=== PATIENT | female | born 1985 | race Two or more races ===

== ENCOUNTER 2019-11-16 10:41 | Day surgery (SDC) | payer OTHER ==
[~2019-11-16] VITALS: Ht 152.4 cm; Wt 70.6 kg
[2019-11-16] MEDS ORDERED: KETOROLAC 30 MG/ML VIAL (J1885) IV ONE (11:00)
[2019-11-16] MEDS ORDERED: ONDANSETRON 4MG/2ML VIAL (J2405) IV ONE (11:00)
[2019-11-16 11:24] LABS: BASO % 0.3 % (0.0-1.0); EOS # 0.2 10^3/uL (0.0-0.5); EOS % 1.3 % (0.0-3.0); HEMATOCRIT 42.1 % (36.0-47.0); HEMOGLOBIN 13.6 g/dl (12.0-15.5); LYMPH # 2.4 10^3/uL (1.5-5.0); LYMPH % 19.1 % (24.0-44.0); MEAN CORPUSCULAR HEMOGLOBIN 26.8 pg (27.0-33.0); MEAN CORPUSCULAR HGB CONC 32.3 g/dl (32.0-36.5); MEAN CORPUSCULAR VOLUME 82.9 fl (80.0-96.0); MONO # 1.1 10^3/uL (0.0-0.8); NEUTROPHILS # 8.8 10^3/uL (1.5-8.5); NEUTROPHILS % 69.7 % (36.0-66.0); PLATELET COUNT, AUTOMATED 315 10^3/uL (150-450); RED BLOOD COUNT 5.08 10^6/uL (4.00-5.40); WHITE BLOOD COUNT 12.6 10^3/uL (4.0-10.0)
[2019-11-16] MEDS ORDERED: ISOVUE-370 76% 100ML VIAL (Q9967) As Ordered ONE (11:46)
[2019-11-16 11:54] LABS: ALBUMIN 3.7 GM/DL (3.2-5.2); BILIRUBIN,DIRECT 0.2 MG/DL (0.0-0.2); BILIRUBIN,TOTAL 0.7 MG/DL (0.2-1.0); TOTAL PROTEIN 7.5 GM/DL (6.4-8.2)
--- NOTE | 2019-11-16 12:26 | REP ---
CT ABDOMEN AND PELVIS WITH IV CONTRAST: HISTORY: Right lower quadrant pain. CT CONTRAST DOSE: 100 mL of intravenous Isovue 370. CT FINDINGS: Preliminary digital credit front office developer radiograph shows a normal bowel gas pattern. The lung bases are clear on axial CT images. No focal hepatic or splenic lesion is observed. There is one tiny hepatic cyst in the right lobe measuring less than 5 mm. No abnormality is noted in the pancreas or in the gallbladder. Normal adrenal glands are seen bilaterally. The kidneys enhance symmetrically and are morphologically intact. There are a few normal-sized mesenteric lymph nodes in the right lower small bowel mesentery. Terminal ileum is unremarkable. The appendix is seen, mildly enlarged, 8 mm in diameter but without evidence of mural thickening or periappendiceal stranding. No fluid is appreciated. Small and large intestinal bowel loops are otherwise unremarkable. There is a tiny subserosal uterine fibroid at the uterine fundus. This measures 9 mm. There is a small ovarian follicle cyst. Urinary bladder is unremarkable. No abdominal wall defect is seen. No bony destructive lesion is observed. IMPRESSION: Borderline diameter, 8 mm, appendix without evidence of mural thickening or periappendiceal stranding. Otherwise normal CT study abdomen and pelvis. Electronically Signed by Steven Acosta MD 11/16/2019 01:33 P
[2019-11-16] MEDS ORDERED: AMPICILLIN SOD/SULBACTAM SOD 3 GM in D5W MINI-BAG PLUS 100 ML IV ONE (13:45)
--- NOTE | 2019-11-16 14:09 | HPEPDOC ---
General Surgery H&P Date of Admission Nov 16, 2019 Attending Physician: ALEXANDREA ROMO MD History and Physical CHIEF COMPLAINT: abdominal pain HISTORY OF PRESENT ILLNESS: Patient presented herself to the emergency room with one-day history of right- sided abdominal pain. She reports pain started roughly about 7 PM last night was worse last night and this morning but has been persistent and constant. She had nausea and one episode of vomiting last night. Denies fevers or chills. She denies any sick contacts. She felt previously well in the morning. She is an active duty soldier. ALLERGIES: Please see below. HOME MEDICATIONS: Please see below. PAST MEDICAL HISTORY: Denies any chronic medical problems PAST SURGICAL HISTORY: 1. Tubal ligation. PERSONAL/SOCIAL HISTORY: Denies smoking, alcohol use, or recreational drug use. REVIEW OF SYSTEMS: GENERAL: Denies chills, fatigue, fever, weight gain and weight loss. HEENT: Denies hearing or vision problems. NECK: Denies any neck pain. CARDIOVASCULAR: Denies chest pain and palpitations. MUSCULOSKELETAL: Denies arthralgias, back pain and thrombophlebitis. SKIN: Denies rash. NEUROLOGIC: Denies headaches. PSYCHIATRIC: Denies anxiety and depression. HEMATOLOGY/ONCOLOGY: Denies any bleeding or clotting disorder. HEART: Denies any chest pains, palpitations, paroxysmal dyspnea, orthopnea. PULMONARY: Denies chronic cough, dyspnea and wheezing. GASTROINTESTINAL: See HPI. GENITOURINARY: Denies dysuria, frequency, hematuria and nocturia. ENDOCRINE: Denies polydipsia, polyphagia, polyuria, heat or cold intolerance. INFECTIOUS: Denies any recent upper respiratory tract infection, UTI, need for use of antibiotics. NUTRITION: Reports fair appetite. PHYSICAL EXAMINATION: VITAL SIGNS: Please see below. GENERAL APPEARANCE: Patient seen in the emergency room, relatively comfortable though noticeable discomfort when she moves. Awake, alert, oriented. HEENT: Normocephalic, atraumatic. [place] palpebral conjunctivae. Anicteric sclerae. Lips moist. CHEST: No chest wall abnormalities. Normal respiratory motion/effort. NECK: Supple. No thyromegaly. No lymphadenopathies. LUNGS: Lung sounds are clear to auscultation bilaterally. No wheezing appreciat ed. HEART: No chest wall abnormalities. Heart rate and rhythm are regular with no murmurs. ABDOMEN: Abdomen slightly rounded, soft, minimally distended. She has a periumbilical scar around the umbilicus from her tubal ligation. Nontender in the left side. She is tender over the right lower quadrant area with mild guarding on palpation slightly radiation to the suprapubic area. Umbilical area. SKIN: Warm, moist. EXTREMITIES: Extremities have no deformities. No edema identified. NEUROLOGICAL: Awake, alert, oriented . ANCILLARIES: . LABORATORY DATA: Please see below. MICROBIOLOGY: Please see below. IMAGING: CT abdomen and pelvis. Borderline diameter, 8 mm, appendix without evidence of mural thickening or periappendiceal stranding. Otherwise normal CT study abdomen and pelvis. IMPRESSION AND PLAN: Most likely early acute appendicitis Patient's history as well as physical examination is consistent with localized peritoneal irritation most likely from enlarged probably early acute appendicitis. No other pathology visible on CT to explain her symptoms. She does have some mildly enlarged right ovarian cyst but her pain pattern [place] near that area. Thus I suggest to perform diagnostic laparoscopy and most likely the need for appendectomy.I discussed with the patient the details of the proposed procedure, the benefits of performing the procedure, the most common risks on d oing the procedure. This may include Risks of general anesthesia, risks from laparoscopy including bowel and injury, risk of subsequent infection and abscess formation from the appendicitis. I have given her a chance to ask questions, voice out concerns. Patient has agreed to proceed. She will be given a dose of Unasyn 3 g IV preoperatively and depending on the degree of her state of inflammation or infection involving the appendix may or may not need for antibiotics. Vital Signs Vital Signs Date Time Temp Pulse Resp B/P (MAP) Pulse Ox O2 Delivery O2 Flow Rate FiO2 11/16/19 11:27 11/16/19 10:41 97.9 71 16 100 Room Air Laboratory Data Labs 24H Laboratory Tests 2 11/16/19 11:13: Immature Granulocyte % (Auto) 0.6, Neutrophils (%) (Auto) 69.7H, Lymphocytes (%) (Auto) 19.1L, Monocytes (%) (Auto) 9.0H, Eosinophils (%) (Auto) 1.3, Basophils (%) (Auto) 0.3, Neutrophils # (Auto) 8.8H, Lymphocytes # (Auto) 2.4, Monocytes # (Auto) 1.1H, Eosinophils # (Auto) 0.2, Basophils # (Auto) 0.0, Nucleated Red Blood Cells % (auto) 0.0, Urine Color YELLOW, Urine Appearance CLEAR, Urine pH 7.0, Urine Specific [place] 1.026, Urine Protein NEGATIVE, Urine Glucose (UA) NEGATIVE, Urine Ketones NEGATIVE, Urine Blood NEGATIVE, Urine Nitrite NEGATIVE, Urine Bilirubin NEGATIVE, Urine Urobilinogen 0.2, Urine Leukocyte Esterase NEGATIVE, Urine WBC (Auto) 2, Urine RBC (Auto) 2, Urine Hyaline Casts (Auto) 0, Urine Bacteria (Auto) 1+H, Urine Squamous Epithelial Cells 5, Urine Sperm (Auto) , Total Bilirubin 0.7, Direct Bilirubin 0.2, Aspartate Amino Transf (AST/SGOT) 14, Alanine Aminotransferase (ALT/SGPT) 22, Alkaline Phosphatase 70, Total Protein 7.5, Albumin 3.7, Albumin/Globulin Ratio 0.97L, Lipase 138 11/16/19 11:20: POC Glucose (Misc Panel) 84, POC Sodium (Misc Panel) 137, POC Potassium (Misc Panel) 3.6, POC Chloride (Misc Panel) 98, POC Total CO2 (Misc Panel) 28.0H, POC Blood Urea Nitrogen (Misc Panel 15, POC Ionized Calcium (Misc Panel) 4.8, POC Creatinine (Misc Panel) 0.9, POC Hematocrit (Misc Panel) 42.0 11/16/19 11:22: POC Beta HCG, Quantitative < 5.0 CBC/BMP Laboratory Tests 11/16/19 11:13 Home Medications No Active Prescriptions or Reported Meds Allergies Coded Allergies: No Known Allergies (Unverified , 11/16/19) A-FIB/CHADSVASC A-FIB History Current/History of A-Fib/PAF?: No Current PO Anticoag Therapy: No ALEXANDREA ROMO MD Nov 16, 2019 14:09
[2019-11-16] MEDS ORDERED: ACET-683 PO (14:11)
[2019-11-16] MEDS ORDERED: BUPIVACAINE HCL 0.25% 30ML VIAL As Ordered ONE (14:44)
[2019-11-16] MEDS ORDERED: LIDOCAINE 1% SDV INJ 30 ML VIAL As Ordered ONE (14:44)
[2019-11-16 15:55] VITALS: BP 106/61
[2019-11-16] MEDS ORDERED: NORC1TAB7 PO (17:38)
[2019-11-16] MEDS ORDERED: ONDANSETRON 4MG/2ML VIAL (J2405) As Ordered ONE (17:52)
[2019-11-16] MEDS ORDERED: PHENYLephrine HCL 500 MCG/5 ML (100MCG/ML) SYRINGE (J2370) As Ordered ONE (17:52)
[2019-11-16] MEDS ORDERED: propofoL 200 MG/20 ML VIAL As Ordered ONE (17:52)
[2019-11-16] MEDS ORDERED: MIDAZOLAM INJ 2 MG/2 ML VIAL (J2250) As Ordered ONE (17:52)
[2019-11-16] MEDS ORDERED: SUGAMMADEX SODIUM 500 MG/5 ML VIAL (BRIDION) As Ordered ONE (17:52)
[2019-11-16] MEDS ORDERED: ROCURONIUM BROMIDE 50 MG/5 ML VIAL As Ordered ONE (17:52)
[2019-11-16] MEDS ORDERED: LIDOCAINE 2% INJ 100 MG/5 ML SDV (FOR ANES.) As Ordered ONE (17:52)
[2019-11-16] MEDS ORDERED: dexameTHASONE 4 MG/ML 1ML VIAL (J1100) As Ordered ONE (17:52)
[2019-11-16] MEDS ORDERED: fentaNYL 250 MCG/5 ML INJECTION (J3010) As Ordered ONE (17:52)
[2019-11-16] MEDS ORDERED: ONDANSETRON 4MG/2ML VIAL (J2405) IV PRN ×2 (18:45→19:00)
[2019-11-16] MEDS ORDERED: fentaNYL 100 MCG/2 ML INJECTION (J3010) IV PRN (18:45)
[2019-11-16] MEDS ORDERED: LR 1,000 ML IV SCH (18:45)
[2019-11-16] MEDS ORDERED: PERCOCET 5MG/325MG TAB PO PRN (18:45)
[2019-11-16] MEDS ORDERED: PERCOCET 5MG/325MG TAB As Ordered ONE (18:59)
[2019-11-16] MEDS ORDERED: KETOROLAC 30 MG/ML VIAL (J1885) IV PRN (19:00)
[2019-11-16] MEDS ORDERED: NORCO, ANEXSIA 5/325MG TABLET (HYDROcodone/ACETAMINOPHEN) PO PRN (19:00)
[2019-11-16 19:30] VITALS: BP 111/72
[2019-11-16 20:00] VITALS: BP 123/93
--- NOTE | 2019-11-17 08:40 | ROOPDOC ---
[facility] Report Of Operation Report of Operation DATE OF PROCEDURE: 11/16/19 PREPROCEDURE DIAGNOSES: Acute appendicitis. POSTPROCEDURE DIAGNOSES: Early acute appendicitis. PROCEDURE: Laparoscopic appendectomy. SURGEON: Samir Lang MD EXPORT ADMINISTRATOR: ANESTHESIA: General Anesthesia. ESTIMATED BLOOD LOSS: Approximately 10 mL. COMPLICATIONS: none. REMARKS: mildly dilated distal half of the appendix, mild wall thickening and vascular congestion, no perforation. SPECIMEN: Appendix. DESCRIPTION OF PROCEDURE: Patient has been given a dose of Unasyn 3 gm IV perioperatively. Patient was brought to the operating room, placed supine on the table. Sequential compression device placed for DVT prophylaxis. General endotracheal anesthesia started. The abdomen prepped and draped in usual sterile fashion. After a surgical timeout, we began our surgery Entry into the abdomen done through an incision above the umbilicus. Veress needle inserted on a controlled fashion. Intra-abdominal placement confirmed with saline drop technique. CO2 insufflation started to a pressure of 15 mmHg. Using the same incision an 8 mm port was placed under direct vision of laparoscope. Insertion site was inspected for injury and none was found. He was placed on a Trendelenburg position the right side tilted to about 30 to allow for better visualization of the appendix. Two 5 mm working ports were placed at the suprapubic area and left lower quadrant area under direct vision. Operative findings: No free perforation noted. No ascites. Visualized portions of the bowel looks within normal. The gallbladder is visualized also does not look inflamed. The uterus is minimally enlarged with small myomas visualized. A small right ovarian cyst visualized. Small amount of serous fluid in the pelvis noted. The appendix is visualized coursing lateral to the cecum. The distal half appears more dilated than the rest of the appendix. There is mild vascular congestion as well as mild acute wall thickening consistent with early acute appendicitis. No evidence of necrosis or perforation. The appendix was located, This was grasped to pull the base of the appendix into view. The mesoappendix was divided using Harmonic scalpel down to the base. Two PDS Endoloops were placed to ligate the appendix at its base then divided with a Harmonic Scalpel the stump cauterized. Stump appears healthy. Appendix was then delivered into an Endo Catch bag. After re-insufflation the surgical site was inspected for hemostasis, Surrounding areas of the abdomen and inspected for fluid collections or signs of injury. The abdomen was deflated. All ports removed. The umbilical fascial defect repaired with 0 Vicryl in a mattress fashion. All skin incisions closed with 4-0 Monocryl in a subcuticular fashion. Steri-Strips and gauze dressing used for wound coverage. Patient was promptly awake and extubated and brought to recovery room stable. All counts of sponges and instruments verified to be correct. SAMIR LANG MD Nov 17, 2019 08:40
== END 2019-11-16 20:32 | disposition home or self-care (01) ==
LOC: M ED 10:41 → M SDC 15:02 → ENRESERVTM 15:22 → ENRESERVDT 15:22 → M MS5PR 15:57 → M SDC 20:32
PROVIDERS: ATTEND Surgery
DX: K35.890 Other acute appendicitis without perforation or gangrene (principal)
CPT/HCPCS: 44970; 74177; 80047; 80076; 81001; 83690; 84702; 85025; 88304; 96365; 96375; 99284; J1100; J1885; J2250; J2370; J2405; J3010; Q9967

== ENCOUNTER 2020-09-23 22:09 | Emergency (ER) | payer OTHER ==
[~2020-09-23] VITALS: Ht 152.4 cm; Wt 63.6 kg
[~2020-09-23 22:09] MED LIST: ACET-683 PO; NORC1TAB7 PO
[2020-09-23] MEDS ORDERED: NAPR-837 PO (22:12)
[2020-09-23] MEDS ORDERED: NS 1,000 ML IV ONE (23:15)
[2020-09-23] MEDS ORDERED: ONDANSETRON 4MG/2ML VIAL IV ONE (23:15)
[2020-09-23] MEDS ORDERED: KETOROLAC 30 MG/ML 1ML VIAL IV ONE (23:15)
[2020-09-23 23:39] LABS: BASO # 0.1 10^3/uL (0.0-0.2); BASO % 0.4 % (0.0-1.0); EOS # 1.3 10^3/uL (0.0-0.5); EOS % 10.4 % (0.0-3.0); HEMATOCRIT 35.2 % (36.0-47.0); HEMOGLOBIN 11.2 g/dl (12.0-15.5); LYMPH # 3.8 10^3/uL (1.5-5.0); LYMPH % 29.8 % (24.0-44.0); MEAN CORPUSCULAR HGB CONC 31.8 g/dl (32.0-36.5); MEAN CORPUSCULAR VOLUME 81.9 fl (80.0-96.0); MONO # 1.1 10^3/uL (0.0-0.8); MONO % 8.2 % (0.0-5.0); NEUTROPHILS # 6.5 10^3/uL (1.5-8.5); NEUTROPHILS % 50.6 % (36.0-66.0); PLATELET COUNT, AUTOMATED 262 10^3/uL (150-450)
[2020-09-23 23:41] LABS: WHITE BLOOD COUNT 12.8 10^3/uL (4.0-10.0)
[2020-09-24 00:02] LABS: ALBUMIN 3.2 GM/DL (3.2-5.2); ALT/SGPT 17 U/L (12-78); BILIRUBIN,DIRECT 0.1 MG/DL (0.0-0.2); BILIRUBIN,TOTAL 0.1 MG/DL (0.2-1.0); BLOOD UREA NITROGEN 13 MG/DL (7-18); CALCIUM LEVEL 8.9 MG/DL (8.5-10.1); CARBON DIOXIDE LEVEL 29 MEQ/L (21-32); CHLORIDE LEVEL 105 MEQ/L (98-107); GLOMERULAR FILTRATION RATE > 60.0 (>60); GLUCOSE, FASTING 82 MG/DL (70-100); LIPASE 291 U/L (73-393); SODIUM LEVEL 140 MEQ/L (136-145); TOTAL PROTEIN 6.4 GM/DL (6.4-8.2)
[2020-09-24] MEDS ORDERED: ISOVUE-370 76% 100ML VIAL As Ordered ONE (00:16)
--- NOTE | 2020-09-24 00:41 | REPVR ---
PROCEDURE INFORMATION: Exam: CT Abdomen And Pelvis With Contrast Exam date and time: 09/24/2020 12:24 AM Age: 35 years old Clinical indication: Abdominal pain; Flank; Right; Additional info: Right flank/rlq pain TECHNIQUE: Imaging protocol: Computed tomography of the abdomen and pelvis with contrast. Radiation optimization: All CT scans at this facility use at least one of these dose optimization techniques: automated exposure control; mA and/or kV adjustment per patient size (includes targeted exams where dose is matched to clinical indication); or iterative reconstruction. Contrast material: ISOVUE 370; Contrast volume: 100 ml; Contrast route: INTRAVENOUS (IV); COMPARISON: CT ABD/PEL W/IV CONTRAST ONLY 11/16/2019 11:48 AM FINDINGS: Lungs: No suspicious mass or airspace process in the visualized lung bases. Liver: Liver appears normal with no focal abnormality. Gallbladder and bile ducts: Gallbladder is present and shows no evidence of gallstone. Pancreas: Pancreas appears normal. No focal mass or peripancreatic inflammation. Spleen: Spleen appears homogeneous without focal mass. Adrenal glands: Adrenal glands are normal in appearance. Kidneys and ureters: Kidneys appear normal, with no stone, solid mass or hydronephrosis. Stomach and bowel: No evidence of small bowel obstruction. Large volume of right-sided colonic stool. No evidence of acute diverticulitis. Appendix: Appendix is not seen. No RLQ inflammation to suggest appendicitis. Intraperitoneal space: No pneumoperitoneum. Vasculature: No aortic aneurysm. Main portal and splenic veins enhance normally. Lymph nodes: No enlarged lymph nodes. Urinary bladder: Urinary bladder appears normal. Reproductive: Likely incidental 17 mm right ovarian cyst. Probable small fundal uterine myomas measuring on the order of 1 cm. Bones/joints: Bony structures show no acute fracture or destructive process. Soft tissues: Fat containing umbilical hernia is present. No concerning focal abnormality of the extra-abdominal and pelvic soft tissues. IMPRESSION: 1. Nonvisualization of the appendix, but with no concerning findings for appendicitis. Appendicitis is felt to be unlikely. 2. Right-sided colonic stool large in volume, which can be a source of flank pain. 3. No evidence of a right-sided urinary tract abnormality. 4. Small 17 mm right ovarian cyst with simple fluid density Electronically signed by: Phillip Aguayo On 09/24/2020 00:40:30 AM
[2020-09-24] MEDS ORDERED: MIRA3350 PO (00:53)
[2020-09-24] MEDS ORDERED: RA M1.74 PO (00:53)
[2020-09-24 01:24] VITALS: BP 93/58
== END 2020-09-24 01:29 | disposition home or self-care (01) ==
LOC: M ED 22:09
DX: K59.00 Constipation, unspecified (principal); N83.291 Other ovarian cyst, right side
CPT/HCPCS: 74177; 80048; 80076; 81001; 83605; 83690; 84702; 85025; 96361; 96374; 96375; 99284; J1885; J2405; Q9967

== ENCOUNTER → 2021-12-21 | Outpatient (REF) ==
[~2021-12-21] MED LIST changes: +MIRA3350 PO; +NAPR-837 PO; +ONDA4TAB6 PO; +RA M1.74 PO
== END ==
LOC: M PLAIMG 09:59
PROVIDERS: ATTEND Internal Medicine
DX: Z00.00 Encounter for general adult medical examination without abnormal findings (principal)

== ENCOUNTER 2021-12-25 18:47 | Emergency (ER) | payer OTHER ==
[~2021-12-25] VITALS: Ht 152.4 cm; Wt 72.7 kg
[~2021-12-25 18:47] MED LIST changes: -ONDA4TAB6 PO
[2021-12-25] MEDS ORDERED: KETOROLAC 30 MG/ML 1ML VIAL IM ONE (22:35)
[2021-12-25] MEDS ORDERED: ONDANSETRON 4MG TAB PO ONE (22:40)
[2021-12-25] MEDS ORDERED: KETOROLAC 30 MG/ML 1ML VIAL IV ONE (23:05)
[2021-12-25] MEDS ORDERED: ONDA4TAB6 PO (23:41)
[2021-12-26 00:08] VITALS: BP 131/71
== END 2021-12-26 00:09 | disposition home or self-care (01) ==
LOC: M ED 18:47
DX: G43.909 Migraine, unspecified, not intractable, without status migrainosus (principal); M54.2 Cervicalgia; R11.2 Nausea with vomiting, unspecified; Z98.51 Tubal ligation status; Z79.899 Other long term (current) drug therapy
CPT/HCPCS: 84702; 87428; 96374; 99284; J1885

== ENCOUNTER → 2022-05-10 | Outpatient (REF) ==
[~2022-05-10] MED LIST changes: +ONDA4TAB6 PO
== END ==
LOC: M LAB 14:44
PROVIDERS: ATTEND Nurse Practitioner Adult Health
DX: Z11.52 Encounter for screening for COVID-19 (principal)

== ENCOUNTER 2022-11-19 04:50 | Emergency (ER) | payer OTHER ==
[2022-11-19] MEDS ORDERED: IBUPROFEN 600MG TAB PO ONE (05:20)
[2022-11-19] MEDS ORDERED: METOCLOPRAMIDE INJ 10MG/2ML VIAL IV ONE (06:45)
[2022-11-19] MEDS ORDERED: NS 1,000 ML IV ONE (06:45)
[2022-11-19] MEDS ORDERED: ACETAMINOPHEN 500 MG TAB PO ONE (06:45)
[2022-11-19 06:50] LABS: BASO # 0.1 10^3/uL (0.0-0.2); BASO % 0.3 % (0.0-1.0); EOS # 0.2 10^3/uL (0.0-0.5); HEMOGLOBIN 12.1 g/dl (12.0-15.5); LYMPH # 1.7 10^3/uL (1.5-5.0); LYMPH % 10.9 % (24.0-44.0); MEAN CORPUSCULAR HEMOGLOBIN 25.2 pg (27.0-33.0); MEAN CORPUSCULAR HGB CONC 31.8 g/dl (32.0-36.5); MEAN CORPUSCULAR VOLUME 79.2 fl (80.0-96.0); MONO # 1.3 10^3/uL (0.0-0.8); MONO % 8.4 % (2.0-8.0); NEUTROPHILS # 12.5 10^3/uL (1.5-8.5); NEUTROPHILS % 78.6 % (36.0-66.0); PLATELET COUNT, AUTOMATED 339 10^3/uL (150-450); WHITE BLOOD COUNT 15.9 10^3/uL (4.0-10.0)
[2022-11-19] MEDS ORDERED: KETOROLAC 30 MG/ML 1ML VIAL IV ONE (06:50)
[2022-11-19 08:12] VITALS: BP 106/62
== END 2022-11-19 08:28 | disposition home or self-care (01) ==
LOC: M ED 04:50
DX: G43.909 Migraine, unspecified, not intractable, without status migrainosus (principal); B34.9 Viral infection, unspecified; Z98.51 Tubal ligation status
CPT/HCPCS: 80047; 84702; 85025; 87428; 87880; 96374; 96375; 99284; J1885; J2765

== ENCOUNTER → 2023-04-02 | Outpatient (CLI) | payer OTHER | LOC: M WHC 13:24 | PROVIDERS: ATTEND Nurse Practitioner Family | DX: Z12.31 Encounter for screening mammogram for malignant neoplasm of breast (principal) ==

== ENCOUNTER → 2024-05-28 | Outpatient (CLI) | payer OTHER ==
[~2024-05-28] MED LIST changes: +ONDA-282 PO; -ONDA4TAB6 PO
== END ==
LOC: M WHC 14:30
PROVIDERS: ATTEND Registered Nurse
DX: Z12.31 Encounter for screening mammogram for malignant neoplasm of breast (principal)

== ENCOUNTER → 2024-06-28 | Outpatient (CLI) | payer OTHER | LOC: M WHC 14:45 | PROVIDERS: ATTEND Registered Nurse | DX: N60.02 Solitary cyst of left breast (principal) | CPT/HCPCS: 76642; 77065; G0279 ==

== ENCOUNTER → 2025-07-27 | Outpatient (CLI) | payer OTHER | LOC: M WHC 07:06 | PROVIDERS: ATTEND Nurse Practitioner Family | DX: R92.8 Other abnormal and inconclusive findings on diagnostic imaging of breast (principal); Z12.31 Encounter for screening mammogram for malignant neoplasm of breast; R92.323 Mammographic fibroglandular density, bilateral breasts | CPT/HCPCS: 76642; 76830; 77066; G0279 ==